=== PATIENT | female | born 1970 | race African-American/Black ===

== ENCOUNTER 2020-10-17 07:39 | Emergency (ER) | payer MEDICARE, OTHER ==
[~2020-10-17 07:39] MED LIST: ATARAX25 MG PO; HCTZ12.5 MG PO; IBUPROFEN800 MG PO; LEXAPRO20 MG PO; METFORMIN HCL500 MG PO; NORVASC5 MG PO; PERCOCET 5-3251 EACH PO; RANITIDINE HCL300 MG PO; SINGULAIR10 MG PO; TOPAMAX50 MG PO; TYLENOL PM EX-1 EACH PO; ZANAFLEX4 MG PO
== END 2020-10-17 10:00 | disposition home or self-care (01) ==
LOC: FER 07:39
DX: S93.515A Sprain of interphalangeal joint of left lesser toe(s), initial encounter (principal); I10 Essential (primary) hypertension; E11.9 Type 2 diabetes mellitus without complications; F17.200 Nicotine dependence, unspecified, uncomplicated; W23.0XXA Caught, crushed, jammed, or pinched between moving objects, initial encounter; Y92.009 Unspecified place in unspecified non-institutional (private) residence as the place of occurrence of the external cause
CPT/HCPCS: 73660

== ENCOUNTER 2020-12-28 06:21 | Emergency (ER) | payer OTHER, MEDICARE ==
[2020-12-28] MEDS ORDERED: NAPROXEN500 MG PO (08:01)
== END 2020-12-28 08:07 | disposition home or self-care (01) ==
LOC: FER 06:21
DX: S80.02XA Contusion of left knee, initial encounter (principal); S50.312A Abrasion of left elbow, initial encounter; I10 Essential (primary) hypertension; E11.9 Type 2 diabetes mellitus without complications; W01.0XXA Fall on same level from slipping, tripping and stumbling without subsequent striking against object, initial encounter; Y92.89 Other specified places as the place of occurrence of the external cause; Y99.0 Civilian activity done for income or pay
CPT/HCPCS: 73564

== ENCOUNTER 2021-01-05 15:26 | Emergency (ER) | payer OTHER, MEDICARE ==
[~2021-01-05 15:26] MED LIST changes: +NAPROXEN500 MG PO
== END 2021-01-05 19:14 | disposition home or self-care (01) ==
LOC: FER 15:26
DX: R22.42 Localized swelling, mass and lump, left lower limb (principal); I10 Essential (primary) hypertension; E11.9 Type 2 diabetes mellitus without complications; F17.200 Nicotine dependence, unspecified, uncomplicated
CPT/HCPCS: 93971

== ENCOUNTER 2021-06-25 16:18 | Emergency (ER) | payer MEDICARE, OTHER ==
[2021-06-25 17:49] LABS: CORONAVIRUS 2019 SARS-COV-2 NEGATIVE (NEGATIVE); INFLUENZA A NAA NEGATIVE (NEGATIVE)
[2021-06-25] MEDS ORDERED: ZPAK PO (18:52)
[2021-06-25] MEDS ORDERED: VENTOLIN HFA IN18 GM INH (18:52)
== END 2021-06-25 19:13 | disposition home or self-care (01) ==
LOC: FER 16:18
PROVIDERS: Internal Medicine
DX: J06.9 Acute upper respiratory infection, unspecified (principal); I10 Essential (primary) hypertension; Z20.822 Contact with and (suspected) exposure to COVID-19; Z88.0 Allergy status to penicillin; Z88.5 Allergy status to narcotic agent
CPT/HCPCS: 71045; J1100; U0002